=== PATIENT | female | born 1940 | race Caucasian/White ===

== ENCOUNTER 2019-01-16 20:34 | Inpatient (IN) | payer OTHER ==
[2019-01-16] MEDS ORDERED: ALBUTEROL SO4 2.5/IPRATROPIUM 0.5 INH SOL 3 ML VIAL.NEB. NEB ONE (20:40)
--- NOTE | 2019-01-16 20:48 | PDOC ---
Attending Attestation - HPI HPI: 01/16/19 23:12 The patient is a 78 year old female, with a significant PMH of who presents to the emergency department brought in by EMS for wheezing and cough. Patient was recently exposed to the flu. Patient was given 2 duo-nebs and 10mg of decadron IV via EMS en route to the ED. Patient states her symptoms have improved. The patient denies chest pain, headache and dizziness. Denies fever, chills, nausea, vomit, diarrhea and constipation. Denies dysuria, frequency, urgency and hematuria. Allergies: NKA Past surgical history: None reported. Social history: No reported alcohol, drug or cigarette use. - Physicial Exam PE: 01/16/19 23:13 Agree with resident's exam. <Madhavi Rincon - Last Filed: 01/16/19 23:12> - Resident Resident Name: Rod Gonzalez - ED Attending Attestation I have performed the following: I have examined & evaluated the patient, The case was reviewed & discussed with the resident, I agree w/resident's findings & plan - Critical Care Time Total Critical Care Time: 40 Critical Care Statement: The care of this patient involved high complexity decision making to prevent further life threatening deterioration of the patient 's condition and/or to evaluate & treat vital organ system(s) failure or risk of failure. - Medical Decision Making 01/16/19 23:45 78-year-old female with wheezing and shortness of breath Patient has improved with dexamethasone 10 mg IV as well as DuoNeb's 4 though still exhibits severe expiratory wheezing bilaterally Oxygen saturation decreased to 86% on room air after ambulation CTA will be performed in the emergency department prior to transfer to the floor to rule out pulmonary embolism due to persistent hypoxia Case discussed with hospitalist service by emergency department resident <Cora Ring - Last Filed: 01/16/19 23:47>
[2019-01-16] MEDS ORDERED: ALBUTEROL SO4 2.5/IPRATROPIUM 0.5 INH SOL 3 ML VIAL.NEB. NEB SCH (21:00)
--- NOTE | 2019-01-16 21:24 | PDOC ---
History of Present Illness - General Stated Complaint: DIFFICULTY BREATHING - History of Present Illness Initial Comments: The pt is a 78F w/ a history of HTN, hypothyroidism, HLD who presents for evaluation of shortness of breath and wheezing. The pt reports she has been in proximity with a friend who has/had the flu for several days. Tonight she states that she feels short of breath w/ associated cough. Denies fevers, chest pain, N/V/C/D, abdominal pain. Per EMS pt s/p duo-neb x2 and decadron 10mg IM once and stated that pt reported feeling somewhat improved afterwards. On arrival, pt reports continuing to feel short of breath w/ wheezing. Denies chest pain, dizziness, lightheadedness 01/16/19 21:17 Past History - Past Medical History Allergies/Adverse Reactions: Allergies Allergy/AdvReac Type Severity Reaction Status Date / Time No Known Allergies Allergy Verified 01/16/19 21:02 Home Medications: Ambulatory Orders Aspirin 81 mg PO DAILY 01/16/19 Atorvastatin Ca [Lipitor] 40 mg PO HS 01/16/19 Carvedilol [Coreg] 12.5 mg PO DAILY 01/16/19 Furosemide [Lasix] 40 mg PO DAILY 01/16/19 Levothyroxine [Synthroid -] 137 mcg PO DAILY 01/16/19 Lisinopril [Prinivil -] 40 mg PO DAILY 01/16/19 Meloxicam 15 mg PO DAILY 01/16/19 COPD: No HTN: Yes Hypercholesterolemia: Yes Thyroid Disease: Yes (hypothyroidism) - Immunization History Td Vaccination: Yes TDAP Vaccination: Yes Immunization Up to Date: Yes - Suicide/Smoking/Psychosocial Hx Smoking History: Never smoked Have you smoked in the past 12 months: No Information on smoking cessation initiated: No Hx Alcohol Use: No Drug/Substance Use Hx: No Review of Systems - Review of Systems Able to Perform ROS?: Yes Comments:: GENERAL/CONSTITUTIONAL: No fever or chills. No weakness HEAD, EYES, EARS, NOSE AND THROAT: No change in vision. No ear pain or discharge. No sore throat CARDIOVASCULAR: No chest pain RESPIRATORY: Denies hemoptysis GASTROINTESTINAL: No nausea, vomiting, diarrhea or constipation GENITOURINARY: No dysuria, frequency, or change in urination MUSCULOSKELETAL: +chronic b/l leg pain SKIN: +eczema NEUROLOGIC: No headache, vertigo, loss of consciousness, or change in strength/ sensation ENDOCRINE: No increased thirst. No abnormal weight change HEMATOLOGIC/LYMPHATIC: No anemia, easy bleeding, or history of blood clots 01/16/19 21:27 *Physical Exam - Vital Signs Last Vital Signs Temp Pulse Resp BP Pulse Ox 98.7 F 68 22 H 154/80 100 01/16/19 20:55 01/16/19 20:55 01/16/19 20:55 01/16/19 20:55 01/16/19 20:55 - Physical Exam Comments: GENERAL: Awake, alert, and oriented to person/place/time HEAD: No signs of trauma, normocephalic, atraumatic EYES: PERRLA, EOMI, sclera anicteric, conjunctiva clear ENT: Hearing grossly normal, nares patent, oropharynx clear without exudates. Moist mucosa LUNGS: diffuse b/l expiratory wheezing; not tachypnic HEART: Regular rate and rhythm, normal S1 and S2, no murmurs appreciated, ABDOMEN: Soft, protuberant, nontender, normoactive bowel sounds. No guarding, no rebound EXTREMITIES: BLE 1+ pitting edema to mid-avitia NEUROLOGICAL: Cranial nerves II through XII grossly intact. Normal speech, no focal sensorimotor deficits SKIN: Warm, Dry 01/16/19 21:28 ED Treatment Course - LABORATORY CBC & Chemistry Diagram: 01/16/19 21:15 01/16/19 21:15 - RADIOLOGY Radiology Studies Ordered: Category Date Time Status CHEST X-RAY PORTABLE* [RAD] Stat Radiology 01/16/19 20:46 Ordered - Medications Given in the ED: ED Medications Discontinued Medications Generic Name Dose Route Start Last Admin Trade Name Freq PRN Reason Stop Dose Admin Albuterol/Ipratropium 1 amp 01/16/19 21:00 01/16/19 21:13 Duoneb - NEB 01/16/19 21:01 1 amp Q15M JULI Administration Medical Decision Making - Medical Decision Making The pt is a 78F w/ a history of HTN, HLD, hypothyroidism who presents for evaluation of shortness of breath and wheezing s/p duo-neb x2 and decadron from EMS ED Course Labs sent CXR ECG Duo-neb x1 01/16/19 21:29 No leukocytosis No anemia ECG w/ NSR; HR 61; QTc 414 01/16/19 21:39 CTA to further evaluate for PE, PNA, effusion Tylenol 975mg PO once for pain Influenza swab sent 01/16/19 23:07 Influenza negative Pt to CTA Dispo: Admit 01/16/19 23:56 *DC/Admit/Observation/Transfer Diagnosis at time of Disposition: Shortness of breath Hypertension Qualifiers: Hypertension type: unspecified Qualified Code(s): I10 - Essential (primary) hypertension Hypothyroidism Qualifiers: Hypothyroidism type: unspecified Qualified Code(s): E03.9 - Hypothyroidism, unspecified - Discharge Dispostion Condition at time of disposition: Fair Decision to Admit order: Yes - Referrals - Patient Instructions - Post Discharge Activity
[2019-01-16 21:25] LABS: HEMATOCRIT 38.8 % (32.4-45.2); HEMOGLOBIN 12.8 GM/dL (10.7-15.3); MCH 31.6 pg (25.7-33.7); MEAN CELL VOLUME 95.7 fl (80-96); MEAN PLT VOLUME 8.7 fl (7.5-11.1); PLATELET COUNT 176 K/MM3 (134-434); RBC 4.06 M/mm3 (3.60-5.2); RDW 14.9 % (11.6-15.6); WHITE BLOOD COUNT 4.6 K/mm3 (4.0-10.0)
[2019-01-16 21:57] LABS: N-TERMINAL BNP 76.2 pg/ml (5-450)
[2019-01-16 21:58] LABS: ALBUMIN 3.2 g/dl (3.4-5.0); ALK PHOS 86 U/L (45-117); ANION GAP 4 MMOL/L (8-16); BILIRUBIN,TOTAL 0.2 mg/dL (0.2-1); BLOOD UREA NITROGEN 15 mg/dL (7-18); CALCIUM 7.9 mg/dL (8.5-10.1); CHLORIDE 102 mmol/L (98-107); CO2 31 mmol/L (21-32); CREATININE 0.6 mg/dL (0.55-1.3); GLUCOSE,RANDOM 116 mg/dL (74-106); POTASSIUM 4.5 mmol/L (3.5-5.1); SGOT/AST 38 U/L (15-37); SGPT/ALT 28 U/L (13-61); SODIUM 138 mmol/L (136-145); TOT PROT 6.5 g/dl (6.4-8.2)
--- NOTE | 2019-01-16 22:34 | PN ---
Teaching Attending Note Name of Resident: Benja Sanchez ATTENDING PHYSICIAN STATEMENT I saw and evaluated the patient. I reviewed the resident's note and discussed the case with the resident. I agree with the resident's findings and plan as documented. SUBJECTIVE: Patient is a 78 year old woman with PMH of HTN, hypothyroidism and HLD who presents for evaluation of shortness of breath and wheezing. The patient reports she has been in proximity with a friend who has had the flu for several days. Tonight she states that she feels short of breath with associated nonproductive cough. Denies fevers, chest pain, nausea, vomiting, abdominal pain or change in bowel habits. Per EMS she was given Duo-neb x2 and decadron 10mg IM once and stated that she reported feeling somewhat improved afterwards. On arrival, patient reports continuing to feel short of breath with wheezing. She has CARDENAS, sleeps on 3 pillows and has constipation. Denies chest pain, dizziness or lightheadedness. OBJECTIVE: Alert Vital Signs Period Temp Pulse Resp BP Sys/Mann Pulse Ox Last 24 Hr 98.7 F 66-68 14-22 145-154/80-80 96-100 HEENT: No Jaundice, eye redness or discharge, PERRLA, EOMI. Normocephalic, atraumatic. External ears are normal and hearing is grossly intact. No nasal discharge. Neck: Supple, nontender. No palpable adenopathy or thyromegaly. No JVD Chest: Good effort. Diffuse expiratory wheezing. No rales. Clear to percussion. Heart: Regular. No S3, rub or murmur Abdomen: Not distended, soft, nontender and no HSM. No rebound or guarding. Normal bowel sounds. Ext: Peripheral pulses intact. Obese legs. No pitting leg edema. Skin: Warm and dry. No petechiae, rash or ecchymosis. Neuro: Alert. Oriented x3. CN 2-12 grossly intact. Sensation grossly intact in all four extremities and DTR are symmetric. Psych: Appropriate mood and affect. Good insight. Home Medications Medication Instructions Recorded Aspirin 81 mg PO DAILY 01/16/19 Atorvastatin Ca [Lipitor] 40 mg PO HS 01/16/19 Carvedilol [Coreg] 12.5 mg PO DAILY 01/16/19 Furosemide [Lasix] 40 mg PO DAILY 01/16/19 Levothyroxine [Synthroid -] 137 mcg PO DAILY 01/16/19 Lisinopril [Prinivil -] 40 mg PO DAILY 01/16/19 Meloxicam 15 mg PO DAILY 01/16/19 Abnormal Lab Results 01/16/19 21:15 Anion Gap 4 L Random Glucose 116 H Calcium 7.9 L AST 38 H Albumin 3.2 L ASSESSMENT AND PLAN: 1. Acute bronchospasm - Finding consistent with acute asthma exacerbation. Will treated with duoneb q 4 hours and solumedrol 40 mg IV q 8 hours as well as oxygen. CXR shows increased interstitial markings and pulmonary congestion. No pulmonary embolism on CTA. EKG shows NSR with no acute ST-T wave changes. Will get ECHO and check HbA1c. Will give a trial of IV lasix pending ECHO in view of congestion on CXR. May have a component of sleep apnea and/or obesity- hypoventilation syndrome. Will benefit fro outpatient PFTs. Counseled to stop meloxicam and use conservative measures to alleviate arthritis pain. 2. Hypoalbuminemia - Possibly due to combined effects of malnutrition and inflammation associated with comorbid chronic conditions. Will ensure adequate dietary protein intake and also consult wealth management manager. 3. Morbid obesity Counseled on the risks associated with obesity. Will provide patient all the necessary assistance, counseling and positive reinforcement to facilitate weight loss. Consult wealth management manager. 4. Hypertension - Hypertension imroved while in the ER. Will restart outpatient antihypertensive drugs and revise regimen to ensure smooth [id number] good BP control. Nonpharmacologic measures to control hypertension like weight loss, salt restriction and exercise discussed. 5. DVT prophylaxis - Lovenox 40 mg SQ q 12 hours. 6. Advance directives - Full code
[2019-01-16] MEDS ORDERED: ACETAMINOPHEN 325 MG TABLET (FP) PO ONE (23:06)
[2019-01-16] MEDS ORDERED: ACETAMINOPHEN 325 MG TABLET (FP) ONE (23:11)
[2019-01-16 23:40] LABS: PLATELET ESTIMATE ADEQUATE
--- NOTE | 2019-01-17 01:29 | HP ---
CHIEF COMPLAINT: Cough, shortness of breath, "I have a virus" PCP: Dr. Nolen HISTORY OF PRESENT ILLNESS: Pt. is a 78 y.o. lithuanian-speaking F presenting with cough and shortness of breath since Monday. Pt. states that she has been having a dry cough, malaise, and decreased appetite associated with subjective fever. She endorses that the cough has been keeping her up all night throughout this time. Pt. states that her neighbor whom she visits everyday was admitted yesterday for the flu. Pt. states that 2 years ago she felt very similar to the way she feels now but did not go to the hospital and her symptoms resolved in 2 weeks. Pt. states that she was referred by her PCP to see a director of public safety and has an appointment on 01/29 for an echo and cardiac workup for suspected CHF. Pt. states that her legs are swollen and has been worsening progressively for months. Pt. states that she "can walk fine on a flat surface but becomes short of breath very quickly on hills and stairs." Pt. endorses 3 pillow orthopnea. Pt. states that her last BM was on Monday, but that she can sometimes go for "weeks" without having a BM. Pt. endorses a burning sensation in the right avitia. Pt. denies acute vision changes, acute bowel changes, acute urinary changes, blood in the urine or stool, chest pain, nausea or vomiting at this time. At this time Pt. endorses some improvement with respirations. ER course was notable for: (1)EKG, CTA, CXR (2)Duonebs x1 (3)Labs, Desaturation to 86% on ambulation EMS: Duonebs x 2, Decadron 10mg Recent Travel: No PAST MEDICAL HISTORY: HTN, HLD, Hypothyroidism, Arthritis, Childhood Asthma, PAST SURGICAL HISTORY: B/l Hip Replacement (2014, 2017) and Cataract Surgery on L. Eye Social History: Smoking: Denies, never Alcohol: Denies, occasional in past Drugs: Denies, never Family History: Mother-DM, heart disease; Father-HTN, heart disease Allergies Seasonal Allergies HOME MEDICATIONS: Home Medications Medication Instructions Recorded Aspirin 81 mg PO DAILY 01/16/19 Atorvastatin Ca [Lipitor] 40 mg PO HS 01/16/19 Carvedilol [Coreg] 12.5 mg PO DAILY 01/16/19 Furosemide [Lasix] 40 mg PO DAILY 01/16/19 Levothyroxine [Synthroid -] 137 mcg PO DAILY 01/16/19 Lisinopril [Prinivil -] 40 mg PO DAILY 01/16/19 Meloxicam 15 mg PO DAILY 01/16/19 REVIEW OF SYSTEMS As Per [facility] PHYSICAL EXAMINATION Vital Signs - 24 hr 01/16/19 01/16/19 01/17/19 20:55 21:46 01:04 Temperature 98.7 F 98.2 F Pulse Rate 68 Pulse Rate [ 66 67 Apical] Respiratory 22 H 14 18 Rate Blood Pressure 154/80 Blood Pressure 145/80 153/63 [Left Arm] O2 Sat by Pulse 100 96 96 Oximetry (%) 01/17/19 01:09 Temperature Pulse Rate Pulse Rate [ Apical] Respiratory Rate Blood Pressure Blood Pressure [Left Arm] O2 Sat by Pulse 96 Oximetry (%) GENERAL: Awake, alert, and fully oriented, in respiratory distress, fully upright HEAD: Normal with no signs of trauma. EYES: Pupils equal, round and reactive to light, extraocular movements intact, sclera anicteric, conjunctiva clear. EARS, NOSE, THROAT: Ears normal, nares patent, oropharynx clear without exudates. Moist mucous membranes. NECK: Normal range of motion, supple without lymphadenopathy, JVD, carotid bruit or masses- limited s/t body habitus LUNGS: Diffuse wheezing with crackles. No accessory muscle use. HEART: Regular rate and rhythm, normal S1 and S2 without murmur, rub or gallop. ABDOMEN: Soft, nontender, not distended, normoactive bowel sounds, no guarding, no rebound, no masses. No hepatomegaly or splenomegaly. MUSCULOSKELETAL: No CVA tenderness. UPPER EXTREMITIES: 1+ radial pulses, warm, well-perfused. No cyanosis. No clubbing. LOWER EXTREMITIES: 1+ dorsal pedal pulses, warm, well-perfused. Avitia tenderness. Non-pitting edema vs. fat tissue NEUROLOGICAL: Normal speech. PSYCHIATRIC: Cooperative. Good eye contact. Appropriate mood and affect. SKIN: Warm, dry, normal turgor, normal capillary refill. Laboratory Results - last 24 hr 01/16/19 01/16/19 01/16/19 21:15 21:15 21:15 WBC 4.6 RBC 4.06 Hgb 12.8 Hct 38.8 MCV 95.7 MCH 31.6 MCHC 33.0 RDW 14.9 Plt Count 176 MPV 8.7 Neutrophils % (Manual) 36.0 L Band Neutrophils % 1.0 Lymphocytes % (Manual) 40.0 Monocytes % (Manual) 17 H Eosinophils % (Manual) 2.0 Platelet Estimate Adequate Sodium 138 Potassium 4.5 Chloride 102 Carbon Dioxide 31 Anion Gap 4 L BUN 15 Creatinine 0.6 Creat Clearance w eGFR 97.20 Random Glucose 116 H Calcium 7.9 L Total Bilirubin 0.2 AST 38 H ALT 28 Alkaline Phosphatase 86 Troponin I < 0.02 B-Natriuretic Peptide 76.2 Total Protein 6.5 Albumin 3.2 L Influenza A (Rapid) Influenza B (Rapid) 01/16/19 23:00 WBC RBC Hgb Hct MCV MCH MCHC RDW Plt Count MPV Neutrophils % (Manual) Band Neutrophils % Lymphocytes % (Manual) Monocytes % (Manual) Eosinophils % (Manual) Platelet Estimate Sodium Potassium Chloride Carbon Dioxide Anion Gap BUN Creatinine Creat Clearance w eGFR Random Glucose Calcium Total Bilirubin AST ALT Alkaline Phosphatase Troponin I B-Natriuretic Peptide Total Protein Albumin Influenza A (Rapid) Negative Influenza B (Rapid) Negative ASSESSMENT/PLAN: Pt. is a 78 y.o. lithuanian-speaking F w/ PMHx. of HTN, HLD, Hypothyroidism and Childhood allergic asthma presents with cough and shortness of breath since Monday. Physical exam significant for wheezing, morbid obesity, RUQ tenderness and lower extremity swelling. Labs/Imaging significant for congestive changes on Xray, Negative PE on CTA, afebrile and no WBC elevation. #Acute Hypoxic Respiratory Failure 2/2 CHF exacerbation Shortness of breath on exertion, increased lower extremity swelling, 3 pillow orthopnea, malaise, cardiomegaly and Pt.'s medication history suggest that the Pt. has some component of heart failure Will give 60mg IV Lasix Strict Is and Os as well as Daily Weights to assess response to Lasix f/u Echo f/u CXR in AM for resolution of congestion Trop. Negative x 1 BNP: 76.2 C/w Coreg 12.5mg BID and Lisinopril 40mg Discontinue Meloxicam as prolonged use is known to cause cardiovascular events especially in the elderly- can substitute with topical patches and creams ( Lidoderm 5% and topical analgesics) EKG: NSR, QTc-414, TWI in V1, P-wave inversion in V1-V3 #Allergic Asthma exacerbation Pt. likely has component of allergic asthma as Pt. has responded to Duonebs though course seems to be refractory, and Pt. is not currently on Ventolin inhaler or daily inhaled corticosteroids at home. will c/w Duonebs Q4H supplemntal O2 to keep sPO2> 92% low threshold for ABG Will start IV Solumedrol 40mg Q8H- low threshold for hold pending echo results as this medication can worsen and antagonizes treatment of heart failure, however benefits out-weighs risk at this time Would recommend Pneumonia Vaccine and Flu vaccine prior to discharge Influenza Neg. CTA Negative for PE, shows chronic airway disease(non-specific ground glass opacities), pneumonitis or congestion #Constipation unknown cause at this time however per Pt. this appears to be chronic. start Miralax, Senna and Docusate as severe constipation can affect respiration , would consider CT abdomen vs. 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 is being undertreated for hypothyroidism. 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 Lovenox 40mg Q12H Visit type - Emergency Visit Emergency Visit: Yes ED Registration Date: 01/16/19 Care time: The patient presented to the Emergency Department on the above date and was hospitalized for further evaluation of their emergent condition. - New Patient This patient is new to me today: Yes Date on this admission: 01/16/19 - Critical Care Critical Care patient: No
[2019-01-17] MEDS ORDERED: FUROSEMIDE 40 MG/4 ML INJECTABLE VIAL IVPUSH ONE (01:42)
[2019-01-17 03:00] VITALS: BMI 47.2
[2019-01-17] MEDS ORDERED: ALBUTEROL SO4 2.5/IPRATROPIUM 0.5 INH SOL 3 ML VIAL.NEB. NEB SCH ×2 (03:00→03:45)
[2019-01-17] MEDS: methylPREDNISolone NA SUCC 40 MG/1 ML VIAL IVPUSH SCH ×2 (03:28→11:07)
[2019-01-17] MEDS: ALBUTEROL SO4 2.5/IPRATROPIUM 0.5 INH SOL 3 ML VIAL.NEB. NEB SCH ×5 (05:00→11:30)
[2019-01-17] MEDS: LEVOTHYROXINE 112 MCG, LEVOTHYROXINE 25 MCG PO SCH (06:30)
[2019-01-17 07:19] LABS: HEMOGLOBIN 14.7 GM/dL (10.7-15.3); MCHC 33.4 g/dl (32.0-36.0); PLATELET COUNT 185 K/MM3 (134-434); RBC 4.58 M/mm3 (3.60-5.2); RDW 14.6 % (11.6-15.6); WHITE BLOOD COUNT 3.4 K/mm3 (4.0-10.0)
[2019-01-17 07:56] LABS: ALBUMIN 3.6 g/dl (3.4-5.0); ALK PHOS 95 U/L (45-117); ANION GAP 7 MMOL/L (8-16); BILIRUBIN,TOTAL 0.4 mg/dL (0.2-1); BLOOD UREA NITROGEN 12 mg/dL (7-18); CALCIUM 8.3 mg/dL (8.5-10.1); CHLORIDE 97 mmol/L (98-107); CO2 34 mmol/L (21-32); CREATININE 0.7 mg/dL (0.55-1.3); GLUCOSE,RANDOM 173 mg/dL (74-106); MAGNESIUM 2.1 mg/dL (1.8-2.4); PHOSPHOROUS 3.7 mg/dL (2.5-4.9); POTASSIUM 4.5 mmol/L (3.5-5.1); SGOT/AST 31 U/L (15-37); SGPT/ALT 31 U/L (13-61); SODIUM 138 mmol/L (136-145); TOT PROT 7.4 g/dl (6.4-8.2)
[2019-01-17] MEDS ORDERED: LISINOPRIL 20 MG TABLET (FP) PO SCH (10:00)
[2019-01-17] MEDS ORDERED: FUROSEMIDE 40 MG/4 ML INJECTABLE VIAL IVPUSH SCH (10:00)
[2019-01-17] MEDS ORDERED: LEVOTHYROXINE NA 125 MCG TABLET (FP) PO SCH (10:00)
[2019-01-17] MEDS ORDERED: ENOXAPARIN NA (PORCINE) 40 MG/0.4 ML DISP.SYRIN SQ SCH (10:00)
[2019-01-17] MEDS ORDERED: ENOXAPARIN NA (PORCINE) 60 MG/0.6 ML DISP.SYRIN SQ SCH (10:00)
[2019-01-17] MEDS: DOCUSATE SODIUM 100 MG CAPSULE (FP) PO SCH ×2 (11:07→21:24)
[2019-01-17] MEDS: FUROSEMIDE 40 MG TABLET (FP) PO SCH (11:08)
[2019-01-17] MEDS: ASPIRIN 81 MG CHEWABLE TABLETS PO SCH (11:08)
[2019-01-17] MEDS: CARVEDILOL 12.5 MG TABLET (FP) PO SCH ×2 (11:08→21:24)
--- NOTE | 2019-01-17 11:11 | PN ---
Teaching Attending Note Name of Resident: Edmar Ontiveros ATTENDING PHYSICIAN STATEMENT I saw and evaluated the patient. I reviewed the resident's note and discussed the case with the resident. I agree with the resident's findings and plan as documented. SUBJECTIVE:breathing improved. able to ambulate to bathroom with minimal difficulty. has dry cough. denies CP, fever, chills, N/V/C/D no recent changes to medications OBJECTIVE: Last Vital Signs Temp Pulse Resp BP Pulse Ox 97.9 F 76 18 146/69 97 01/17/19 09:34 01/17/19 09:34 01/17/19 09:34 01/17/19 09:34 01/17/19 03:08 General NAD CV S1 S2 RRR no murmur/rub/gallop Lungs CTA B/L no wheezing/rales/rhonchi Abdomen soft NT/ND obese extremities non pitting edema ASSESSMENT AND PLAN: 78yo F wtih pMH HTN, dyslipidemia, hypothyroid presented to the ER with progressively worsening SOB and dry cough 1. Acute hypoxic respiratory failure- due to asthma exacerbation. was 86% on RA In the ER and currently 97% on 3L NC. no peak flow available. on medrol 40mg Q8H , will add azithromycin to decrease inflammation. nebs and inhalers. low suspicion for volume overload based on normal BNP, clear lungs on exam and on CT chest. will hold lasix IV at this time. echo pending. will hold acei as this can also potentiate cough. although been on stable dose for some time. CTA negative. Flu negative 2. HTN- controlled. monitor as ACEI being held. will need to titrate to optimze control 3. Hypothyroid- TSH WNL. cont LT4 4. DVT ppx- lovenox 5. anticipate discharge in next 24-48H
[2019-01-17] MEDS: POLYETHYLENE GLYCOL 3350 119 GM BTL PO SCH (11:14)
[2019-01-17] MEDS: AZITHROMYCIN 250 MG TABLET PO SCH (11:21)
--- NOTE | 2019-01-17 11:47 | EKG ---
Test Reason : Blood Pressure : / mmHG Vent. Rate : 061 BPM Atrial Rate : 061 BPM P-R Int : 152 ms QRS Dur : 084 ms QT Int : 412 ms P-R-T Axes : 051 000 031 degrees QTc Int : 414 ms NORMAL SINUS RHYTHM NORMAL ECG NO PREVIOUS ECGS AVAILABLE Confirmed by ROXANNE MAYS MD ([id number]) on 01/17/2019 11:46:54 AM Referred By: Confirmed By:ROXANNE MAYS MD
--- NOTE | 2019-01-17 12:41 | PN ---
Physical Exam: SUBJECTIVE: Patient seen and examined at bedside. no acute events since admission. breathing improved. able to ambulate to bathroom with minimal difficulty. has dry cough. denies CP, fever, chills, N/V/C/D no recent changes to medications OBJECTIVE: Vital Signs Period Temp Pulse Resp BP Sys/Mann Pulse Ox Last 24 Hr 97.6 F-98.7 F 63-76 14-22 126-156/63-80 96-100 GENERAL: AOX 3 NAD, fully upright HEAD: NCAT EYES: Pupils equal, round and reactive to light, extraocular movements intact, sclera anicteric, conjunctiva clear. EARS, NOSE, THROAT: nares patent, oropharynx clear without exudates. MMM. NECK: Normal range of motion, supple without lymphadenopathy, JVD, LUNGS: Diffuse wheezing with crackles. No accessory muscle use. HEART: RRR, normal S1 and S2 without murmur, rub or gallop. ABDOMEN: Soft, NTND, normoactive bowel sounds, no guarding, no rebound, no masses. MUSCULOSKELETAL: No CVA tenderness. UPPER EXTREMITIES: 1+ radial pulses, warm, well-perfused. No cyanosis. No clubbing. LOWER EXTREMITIES: 1+ dorsal pedal pulses, warm, well-perfused. R Mandel tenderness. Non-pitting edema vs. fat tissue NEUROLOGICAL: Normal speech. PSYCHIATRIC: Cooperative. Good eye contact. Appropriate mood and affect. SKIN: Warm, dry, normal turgor, normal capillary refill. Laboratory Results - last 24 hr 01/16/19 01/16/19 01/16/19 21:15 21:15 21:15 WBC 4.6 RBC 4.06 Hgb 12.8 Hct 38.8 MCV 95.7 MCH 31.6 MCHC 33.0 RDW 14.9 Plt Count 176 MPV 8.7 Neutrophils % (Manual) 36.0 L Band Neutrophils % 1.0 Lymphocytes % (Manual) 40.0 Monocytes % (Manual) 17 H Eosinophils % (Manual) 2.0 Platelet Estimate Adequate Sodium 138 Potassium 4.5 Chloride 102 Carbon Dioxide 31 Anion Gap 4 L BUN 15 Creatinine 0.6 Creat Clearance w eGFR 97.20 Random Glucose 116 H Hemoglobin A1c % Calcium 7.9 L Phosphorus Magnesium Total Bilirubin 0.2 AST 38 H ALT 28 Alkaline Phosphatase 86 Troponin I < 0.02 B-Natriuretic Peptide 76.2 Total Protein 6.5 Albumin 3.2 L TSH Influenza A (Rapid) Influenza B (Rapid) 01/16/19 01/17/19 01/17/19 23:00 06:20 06:20 WBC 3.4 L RBC 4.58 Hgb 14.7 Hct 44.0 MCV 96.0 MCH 32.0 MCHC 33.4 RDW 14.6 Plt Count 185 MPV 9.0 Neutrophils % (Manual) Band Neutrophils % Lymphocytes % (Manual) Monocytes % (Manual) Eosinophils % (Manual) Platelet Estimate Sodium 138 Potassium 4.5 Chloride 97 L Carbon Dioxide 34 H Anion Gap 7 L BUN 12 Creatinine 0.7 Creat Clearance w eGFR 81.36 Random Glucose 173 H Hemoglobin A1c % Calcium 8.3 L Phosphorus 3.7 Magnesium 2.1 Total Bilirubin 0.4 AST 31 ALT 31 Alkaline Phosphatase 95 Troponin I B-Natriuretic Peptide Total Protein 7.4 Albumin 3.6 TSH 0.97 Influenza A (Rapid) Negative Influenza B (Rapid) Negative 01/17/19 06:20 WBC RBC Hgb Hct MCV MCH MCHC RDW Plt Count MPV Neutrophils % (Manual) Band Neutrophils % Lymphocytes % (Manual) Monocytes % (Manual) Eosinophils % (Manual) Platelet Estimate Sodium Potassium Chloride Carbon Dioxide Anion Gap BUN Creatinine Creat Clearance w eGFR Random Glucose Hemoglobin A1c % 5.5 Calcium Phosphorus Magnesium Total Bilirubin AST ALT Alkaline Phosphatase Troponin I B-Natriuretic Peptide Total Protein Albumin TSH Influenza A (Rapid) Influenza B (Rapid) Active Medications Generic Name Dose Route Start Last Admin Trade Name Freq PRN Reason Stop Dose Admin Albuterol/Ipratropium 1 amp 01/17/19 04:00 01/17/19 05:00 Duoneb - NEB 01/17/19 16:01 1 amp [id number] JULI Administration Aspirin 81 mg 01/17/19 10:00 01/17/19 11:08 Asa - PO 81 mg DAILY JULI Administration Atorvastatin Calcium 40 mg 01/17/19 22:00 Lipitor - PO HS JULI Azithromycin 500 mg 01/17/19 11:25 01/17/19 11:21 Zithromax - PO 01/20/19 11:24 500 mg DAILY JULI Administration Carvedilol 12.5 mg 01/17/19 10:00 01/17/19 11:08 Coreg - PO 12.5 mg BID JULI Administration Docusate Sodium 100 mg 01/17/19 10:00 01/17/19 11:07 Colace - PO 100 mg BID JULI Administration Enoxaparin Sodium 60 mg 01/17/19 10:00 Lovenox - SQ DAILY JULI Furosemide 40 mg 01/17/19 10:00 01/17/19 11:08 Lasix - PO 40 mg DAILY JULI Administration Levothyroxine Sodium 112 mcg/ 137 mcg 01/17/19 07:00 01/17/19 06:30 Levothyroxine Sodium 25 mcg PO 137 mcg DAILY@0700 JULI Administration Lisinopril 40 mg 01/17/19 10:00 01/17/19 11:17 Prinivil PO Not Given DAILY JULI Methylprednisolone Sodium Succinate 40 mg 01/17/19 02:15 01/17/19 11:07 Solu-Medrol - IVPUSH 40 mg Q8H-IV JULI Administration Polyethylene Glycol 17 gm 01/17/19 10:00 01/17/19 11:14 Miralax (For Daily Use) - PO 17 gm DAILY JULI Administration Senna 2 tab 01/17/19 22:00 Senna - PO [facility] [id number] CT/CHEST CTA - 01/17/19 HISTORY PROVIDED: Rule out PE. TECHNIQUE: Sequential axial images were obtained from the thoracic inlet through the domes of the diaphragm following the administration of intravenous contrast material. CTA pulmonary embolism protocol was utilized, including coronal and oblique coronal MIP images. The study is somewhat limited due to the patient's poor cooperation. There is adequate opacification of the central pulmonary vasculature with no filling defects suspicious for pulmonary embolism. The lung [place] are free of pulmonary masses, areas of acute consolidation or pleural effusions. There are areas of groundglass opacification throughout both lungs. These changes may be chronic in nature. The possibility of a mild degree of acute congestion cannot be excluded. No mediastinal masses, fluid collections or lymphadenopathy are identified. The heart is enlarged. Limited evaluation of the upper abdomen demonstrates no acute pathology. IMPRESSION: Limited study with with no evidence of pulmonary embolism or acute pathology within the chest. Please see above discussion. ASSESSMENT/PLAN: 78 y.o. turkish-speaking F w/ PMHx. of HTN, HLD, Hypothyroidism and Childhood allergic asthma p/w progressively worsening SOB and dry cough x4d. Physical exam significant for wheezing, morbid obesity,and lower extremity swelling?. Labs/Imaging significant for congestive changes on Xray, Negative PE on CTA, afebrile and no WBC elevation. #Acute Hypoxic Respiratory Failure 2/2 asthma exacerbation - was 86% on RA in the ER and currently 97% on 3L NC. no peak flow available. low suspicion for volume overload based on normal BNP and no crackles on lung exam and on CT chest -CTA Negative for PE, shows chronic? airway disease(non-specific ground glass opacities) -Peak flow -c/w medrol 40mg Q8H -will add azithromycin 500mg x3d to decrease inflammation -bronchodilators -echo pending -hold lasix IV at this time -will hold acei as this can also potentiate cough. although been on stable dose for some time. -Flu negative #CHF? - per pt, CARDENAS, increased lower extremity swelling, 3 pillow orthopnea, malaise, and Pt.'s medication history suggest that Pt may have some component of heart failure. not in exacerbation; normal BNP and no crackles on lung exam EKG: NSR, QTc-414, TWI in V1, P-wave inversion in V1-V3 BNP: 76.2 Trop. Negative x 1 s/p 60mg IV Lasix in ED hold IV lasix as does not appear to be in exacerbaion C/w home dose Coreg 12.5mg BID and Lisinopril 40mg Strict Is and Os, Daily Weights f/u Echo Discontinue Meloxicam as prolonged use is known to cause cardiovascular events especially in the elderly- can substitute with topical patches and creams ( Lidoderm 5% and topical analgesics) #Constipation - chronic. per pt has BMs once a week at baseline c/w Miralax, Senna and Docusate #Hypothyroidism TSH WNL c/w Levothyroxine #ELVA/OHS BMI of 46 3 pillow orthopnea and malaise may be partially attributable to ELVA/OHS would recommend sleep study on discharge and follow up with Pulmonology outpatient #Morbid Obesity - BMI 46 [employer] Pt. on life style modifications with realistic expectations; Salt, processed sugar and saturated fat restriction Daily exercise- 20-30min of walking #HTN - controlled. will hold ACEI in consideration of cough. c/w Coreg #HLD c/w Atorvastatin #FEN no IVF, encourage PO intake monitor electrolytes and replete as needed Na restricted diet #DVT Ppx. Lovenox 60mg qd for BMI>40 use increase of standard dose by ~30% Dispo m/s anticipate discharge in next 24-48H Visit type - Emergency Visit Emergency Visit: Yes ED Registration Date: 01/16/19 Care time: The patient presented to the Emergency Department on the above date and was hospitalized for further evaluation of their emergent condition. - New Patient This patient is new to me today: Yes Date on this admission: 01/17/19 - Critical Care Critical Care patient: No
--- NOTE | 2019-01-17 13:32 | ECHO ---
Name: RAFFI SINCLAIR C Exam:Adult Echocardiogram Study Date: 01/17/2019 09:39 AM Age: 78 yrs Reason For Study: LEG SWELLING Height: 63 in Weight: 260 lb BSA: 2.2 m2 MMode/2D Measurements & Calculations Ao root diam: 2.7 cm LVOT diam: 2.0 cm LA dimension: 2.8 cm Doppler Measurements & Calculations MV E max sofie: 135.0 cm/sec Ao V2 max: 173.7 cm/sec MV A max sofie: 157.5 cm/sec Ao max P.1 mmHg MV E/A: 0.86 MV dec time: 0.14 sec CARINA(V,D): 1.9 cm2 LV V1 max P.6 mmHg PA V2 max: 167.0 cm/sec LV V1 max: 107.7 cm/sec PA max P.1 mmHg Procedure A complete two-dimensional transthoracic echocardiogram was performed (2D, M-mode, Doppler and color flow Doppler). The study was technically difficult with many images being suboptimal in quality. Left Ventricle The left ventricular size, thickness and function are normal. The left ventricular ejection fraction is normal. Ejection Fraction = 60-65%. No regional wall motion abnormalities noted. Right Ventricle The right ventricle is normal in size and function. Atria The left atrial size is normal. Right atrium not well visualized. Mitral Valve There is no mitral regurgitation noted. Tricuspid Valve There is trace tricuspid regurgitation. There was insufficient TR detected to calculate RV systolic p ressure. Aortic Valve No hemodynamically significant valvular aortic stenosis. No aortic regurgitation is present. Pulmonic Valve There is no pulmonic valvular regurgitation. Great Vessels The aortic root is normal size. Pericardium/Pleura There is no pericardial effusion. Interpretation Summary The study was technically difficult with many images being suboptimal in quality. The left ventricular size, thickness and function are normal The right ventricle is normal in size and function. There is trace tricuspid regurgitation. MD Richard Desir 01/17/2019 01:32 PM
[2019-01-17] MEDS: ENOXAPARIN NA (PORCINE) 60 MG/0.6 ML DISP.SYRIN SQ SCH (14:34)
[2019-01-17] MEDS ORDERED: guaiFENesin/D-METHORPHAN HB 10 ML UNIT-DOSE CUPS PO ONE (18:37)
[2019-01-17] MEDS: ATORVASTATIN CA 40 MG TABLET (FP) PO SCH (21:24)
[2019-01-17] MEDS: SENNOSIDES 8.6MG TABLET (FP) PO SCH (21:24)
[2019-01-18] MEDS: LEVOTHYROXINE 112 MCG, LEVOTHYROXINE 25 MCG PO SCH (06:12)
[2019-01-18] MEDS ORDERED: ALBUTEROL SO4 0.083% IH SOL 2.5 MG/3 ML VIAL.NEB. NEB PRN (09:06)
[2019-01-18] MEDS: AZITHROMYCIN 250 MG TABLET PO SCH (10:00)
[2019-01-18] MEDS: CARVEDILOL 12.5 MG TABLET (FP) PO SCH ×2 (10:00→22:01)
[2019-01-18] MEDS: methylPREDNISolone NA SUCC 40 MG/1 ML VIAL IVPUSH SCH ×2 (10:01→22:01)
[2019-01-18] MEDS: ASPIRIN 81 MG CHEWABLE TABLETS PO SCH (10:01)
[2019-01-18] MEDS: FUROSEMIDE 40 MG TABLET (FP) PO SCH (10:01)
[2019-01-18] MEDS: DOCUSATE SODIUM 100 MG CAPSULE (FP) PO SCH ×2 (10:01→22:01)
[2019-01-18] MEDS: ENOXAPARIN NA (PORCINE) 60 MG/0.6 ML DISP.SYRIN SQ SCH (10:02)
[2019-01-18] MEDS: POLYETHYLENE GLYCOL 3350 119 GM BTL PO SCH (10:02)
[2019-01-18] MEDS: ALBUTEROL SO4 2.5/IPRATROPIUM 0.5 INH SOL 3 ML VIAL.NEB. NEB SCH (10:03)
--- NOTE | 2019-01-18 10:34 | PN ---
Physical Exam: SUBJECTIVE: Patient seen and examined at bedside. no acute events overnight. breathing improved. able to ambulate to bathroom with minimal difficulty. has dry cough. denies CP, fever, chills, N/V/C/D no recent changes to medications OBJECTIVE: Vital Signs Period Temp Pulse Resp BP Sys/Mann Pulse Ox Last 24 Hr 97.7 F-98.3 F 60-84 18-20 134-166/54-75 94 GENERAL: AOX 3 NAD, fully upright, morbidly obese BMI>46 HEAD: NCAT EYES: Pupils equal, round and reactive to light, extraocular movements intact, sclera anicteric, conjunctiva clear. EARS, NOSE, THROAT: nares patent, oropharynx clear without exudates. MMM. NECK: Normal range of motion, supple without lymphadenopathy, JVD, LUNGS: Diffuse wheezing with crackles. No accessory muscle use. HEART: RRR, normal S1 and S2 without murmur, rub or gallop. ABDOMEN: Soft, NTND, normoactive bowel sounds, no guarding, no rebound, no masses. MUSCULOSKELETAL: No CVA tenderness. UPPER EXTREMITIES: 1+ radial pulses, warm, well-perfused. No cyanosis. No clubbing. LOWER EXTREMITIES: 1+ dorsal pedal pulses, warm, well-perfused. R Mandel tenderness. Non-pitting edema vs. fat tissue NEUROLOGICAL: Normal speech. PSYCHIATRIC: Cooperative. Good eye contact. Appropriate mood and affect. SKIN: Warm, dry, normal turgor, normal capillary refill. Active Medications Generic Name Dose Route Start Last Admin Trade Name Freq PRN Reason Stop Dose Admin Albuterol Sulfate 1 amp 01/18/19 09:06 Ventolin 0.083% Nebulizer Soln - NEB Q4H PRN SHORT OF BREATH/WHEEZING Aspirin 81 mg 01/17/19 10:00 01/18/19 10:01 Asa - PO 81 mg DAILY JULI Administration Atorvastatin Calcium 40 mg 01/17/19 22:00 01/17/19 21:24 Lipitor - PO 40 mg HS JULI Administration Azithromycin 500 mg 01/17/19 11:25 01/18/19 10:00 Zithromax - PO 01/20/19 11:24 500 mg DAILY JULI Administration Carvedilol 12.5 mg 01/17/19 10:00 01/18/19 10:00 Coreg - PO 12.5 mg BID JULI Administration Docusate Sodium 100 mg 01/17/19 10:00 01/18/19 10:01 Colace - PO 100 mg BID JULI Administration Enoxaparin Sodium 60 mg 01/17/19 12:45 01/18/19 10:02 Lovenox - SQ 60 mg DAILY JULI Administration Furosemide 40 mg 01/17/19 10:00 01/18/19 10:01 Lasix - PO 40 mg DAILY JULI Administration Levothyroxine Sodium 112 mcg/ 137 mcg 01/17/19 07:00 01/18/19 06:12 Levothyroxine Sodium 25 mcg PO 137 mcg DAILY@0700 JULI Administration Lisinopril 40 mg 01/17/19 10:00 01/17/19 11:17 Prinivil PO Not Given DAILY JULI Methylprednisolone Sodium Succinate 40 mg 01/18/19 10:00 01/18/19 10:01 Solu-Medrol - IVPUSH 40 mg BID JULI Administration Polyethylene Glycol 17 gm 01/17/19 10:00 01/18/19 10:02 Miralax (For Daily Use) - PO 17 gm DAILY JULI Administration Senna 2 tab 01/17/19 22:00 01/17/19 21:24 Senna - PO 2 tab HS JULI Administration [id number] CT/CHEST CTA - 01/17/19 HISTORY PROVIDED: Rule out PE. TECHNIQUE: Sequential axial images were obtained from the thoracic inlet through the domes of the diaphragm following the administration of intravenous contrast material. CTA pulmonary embolism protocol was utilized, including coronal and oblique coronal MIP images. The study is somewhat limited due to the patient's poor cooperation. There is adequate opacification of the central pulmonary vasculature with no filling defects suspicious for pulmonary embolism. The lung [place] are free of pulmonary masses, areas of acute consolidation or pleural effusions. There are areas of groundglass opacification throughout both lungs. These changes may be chronic in nature. The possibility of a mild degree of acute congestion cannot be excluded. No mediastinal masses, fluid collections or lymphadenopathy are identified. The heart is enlarged. Limited evaluation of the upper abdomen demonstrates no acute pathology. IMPRESSION: Limited study with with no evidence of pulmonary embolism or acute pathology within the chest. Please see above discussion. ECHO Interpretation Summary The study was technically difficult with many images being suboptimal in quality. The left ventricular size, thickness and function are normal The right ventricle is normal in size and function. There is trace tricuspid regurgitation. ASSESSMENT/PLAN: 78 y.o. pashto-speaking F w/ PMHx. of HTN, HLD, Hypothyroidism and Childhood allergic asthma p/w progressively worsening SOB and dry cough x4d. Physical exam significant for wheezing, morbid obesity,and lower extremity swelling?. Labs/Imaging significant for congestive changes on Xray, Negative PE on CTA, afebrile and no WBC elevation. #Acute Hypoxic Respiratory Failure 2/2 mild intermittent asthma exacerbation - still deasturating to 80s on RA but is 97% on 3L NC. low suspicion for volume overload based on normal BNP and no crackles on lung exam and on CT chest -Duplex neg for DVT -CTA Negative for PE, shows chronic? airway disease(non-specific ground glass opacities) -Peak flow today 250 -c/w medrol 40mg BID dosing, decrease to qd for yomi and switch to PO on dc -c/w azithromycin 500mg day 2 of 3 to decrease inflammation -bronchodilators -echo: limited study but appears nl as noted above -hold lasix IV at this time -will hold acei as this can also potentiate cough. although been on stable dose for some time. -Flu negative -pre/post prior to dc -will need PFT as outpatient -will add symbicort #CHF? - per pt, CARDENAS, increased lower extremity swelling, 3 pillow orthopnea, malaise, and Pt.'s medication history suggest that Pt may have some component of heart failure. not in exacerbation; normal BNP and no crackles on lung exam -EKG: NSR, QTc-414, TWI in V1, P-wave inversion in V1-V3 -BNP: 76.2 -Trop. Negative x 1 -echo: limited study but appears nl as noted above -s/p 60mg IV Lasix in ED -hold IV lasix as does not appear to be in exacerbaion -C/w home dose Coreg 12.5mg BID, holding Lisinopril 40mg in consideration of cough. -Strict Is and Os, Daily Weights #Constipation - chronic. per pt has BMs once a week at baseline c/w Miralax, Senna and Docusate #Hypothyroidism TSH WNL c/w Levothyroxine #ELVA/OHS BMI of 46 3 pillow orthopnea and malaise may be partially attributable to ELVA/OHS would recommend sleep study on discharge and follow up with Pulmonology outpatient #Morbid Obesity - BMI 46 [employer] Pt. on life style modifications with realistic expectations; Salt, processed sugar and saturated fat restriction Daily exercise- 20-30min of walking #HTN - controlled. will hold ACEI in consideration of cough. c/w Coreg #HLD c/w Atorvastatin #FEN no IVF, encourage PO intake monitor electrolytes and replete as needed Na restricted diet #DVT Ppx. Lovenox 60mg qd for BMI>40 use increase of standard dose by ~30% Dispo m/s anticipate discharge in next 24-48hr Visit type - Emergency Visit Emergency Visit: Yes ED Registration Date: 01/16/19 Care time: The patient presented to the Emergency Department on the above date and was hospitalized for further evaluation of their emergent condition. - New Patient This patient is new to me today: Yes Date on this admission: 01/18/19 - Critical Care Critical Care patient: No
--- NOTE | 2019-01-18 11:01 | PN ---
Teaching Attending Note Name of Resident: Edmar Ontiveros ATTENDING PHYSICIAN STATEMENT I saw and evaluated the patient. I reviewed the resident's note and discussed the case with the resident. I agree with the resident's findings and plan as documented. SUBJECTIVE:c/o non productive cough. unable to ambulate far due to dyspnea. denies Cp, SOB, fever, chills, N/V/C/D OBJECTIVE: Last Vital Signs Temp Pulse Resp BP Pulse Ox 98.3 F 60 18 143/54 L 94 L 01/18/19 09:32 01/18/19 09:32 01/18/19 09:32 01/18/19 09:32 01/17/19 21:00 General NAD CV S1 S2 RRR no murmur/rub/gallop Lungs scattered wheezing Abdomen soft NT/ND obese extremities non pitting edema ASSESSMENT AND PLAN: 78yo F wtih pMH HTN, dyslipidemia, hypothyroid presented to the ER with progressively worsening SOB and dry cough 1. Acute hypoxic respiratory failure- due to mild intermittent asthma exacerbation. peak flow 250. desaturated off supplemental oxygen to 80's earlier today. will cont medrol current dosing, azithro day2. add symbicort. nebs prn. may require supplemental oxygen on discharge. will obtain pre and post on discharge. cont to hold acei. echo results noted. will need PFT as outpatient. 2. HTN- controlled. monitor as ACEI being held. will need to titrate to optimize control 3. Hypothyroid- TSH WNL. cont LT4 4. DVT ppx- lovenox 5. anticipate discharge in next 24-48H
[2019-01-18] MEDS: BUDESONIDE/FORMETEROL FUMARATE 80/4.5 mcg INHALER IH SCH ×2 (14:54→22:02)
[2019-01-18] MEDS: SENNOSIDES 8.6MG TABLET (FP) PO SCH (22:01)
[2019-01-18] MEDS: ATORVASTATIN CA 40 MG TABLET (FP) PO SCH (22:01)
[2019-01-19 03:44] VITALS: TEMP 98
[2019-01-19] MEDS: LEVOTHYROXINE 112 MCG, LEVOTHYROXINE 25 MCG PO SCH (06:00)
[2019-01-19] MEDS ORDERED: methylPREDNISolone NA SUCC 40 MG/1 ML VIAL IVPUSH SCH (10:00)
[2019-01-19] MEDS ORDERED: PT OWN MED DRAWER 7, Y5N ONE (10:32)
[2019-01-19] MEDS: FUROSEMIDE 40 MG TABLET (FP) PO SCH (10:36)
[2019-01-19] MEDS: DOCUSATE SODIUM 100 MG CAPSULE (FP) PO SCH (10:36)
[2019-01-19] MEDS: CARVEDILOL 12.5 MG TABLET (FP) PO SCH (10:36)
[2019-01-19] MEDS: AZITHROMYCIN 250 MG TABLET PO SCH (10:36)
[2019-01-19] MEDS: ENOXAPARIN NA (PORCINE) 60 MG/0.6 ML DISP.SYRIN SQ SCH (10:36)
[2019-01-19] MEDS: ASPIRIN 81 MG CHEWABLE TABLETS PO SCH (10:36)
[2019-01-19] MEDS: BUDESONIDE/FORMETEROL FUMARATE 80/4.5 mcg INHALER IH SCH (10:37)
[2019-01-19] MEDS: POLYETHYLENE GLYCOL 3350 119 GM BTL PO SCH (10:37)
[2019-01-19 10:43] VITALS: BP 147/76; PULSE 63
[2019-01-19] MEDS ORDERED: LISINOPRIL 20 MG TABLET (FP) PO ONE (10:44)
--- NOTE | 2019-01-19 10:56 | DS ---
Physical Exam: SUBJECTIVE: Patient seen and examined. cough has resolved. breathing improved. denies CP, SOB, fever, chills, N/V/C/D OBJECTIVE: Vital Signs Period Temp Pulse Resp BP Sys/Mann Pulse Ox Last 24 Hr 98 F-98.1 F 61-84 18-20 147-192/67-90 93-96 PHYSICAL EXAM GENERAL: The patient is awake, alert, and fully oriented, in no acute distress. HEAD: Normal with no signs of trauma. EYES: PERRL, extraocular movements intact, sclera anicteric, conjunctiva clear. ENT: Ears normal, nares patent, oropharynx clear without exudates, moist mucous membranes. NECK: Trachea midline, full range of motion, supple. LUNGS: Breath sounds equal, clear to auscultation bilaterally, no wheezes, no crackles, no accessory muscle use. HEART: Regular rate and rhythm, S1, S2 without murmur, rub or gallop. ABDOMEN: Soft, nontender, nondistended, normoactive bowel sounds, no guarding, no rebound, no hepatosplenomegaly, no masses. obese EXTREMITIES: 2+ pulses, warm, well-perfused, no edema. NEUROLOGICAL: Cranial nerves II through XII grossly intact. Normal speech, gait not observed. PSYCH: Normal mood, normal affect. SKIN: Warm, dry, normal turgor, no rashes or lesions noted. LABS HOSPITAL COURSE: Date of Admission:01/16/19 Date of Discharge: 01/19/19 admitting diagnosis: ACute hypoxic respiratory failure, Acute asthma exacerbation Pre hospital course 78 y.o. yakut-speaking F presenting with cough and shortness of breath since Monday. Pt. states that she has been having a dry cough, malaise, and decreased appetite associated with subjective fever. She endorses that the cough has been keeping her up all night throughout this time. Pt. states that her neighbor whom she visits everyday was admitted yesterday for the flu. Pt. states that 2 years ago she felt very similar to the way she feels now but did not go to the hospital and her symptoms resolved in 2 weeks. Pt. states that she was referred by her PCP to see a [facility] and has an appointment on 01/29 for an echo and cardiac workup for suspected CHF. Pt. states that her legs are swollen and has been worsening progressively for months. Pt. states that she "can walk fine on a flat surface but becomes short of breath very quickly on hills and stairs." Pt. endorses 3 pillow orthopnea. Pt. states that her last BM was on Monday, but that she can sometimes go for "weeks" without having a BM. Pt. endorses a burning sensation in the right avitia. Pt. denies acute vision changes, acute bowel changes, acute urinary changes, blood in the urine or stool, chest pain, nausea or vomiting at this time. At this time Pt. endorses some improvement with respirations. Subsequent hospital course Admitted to medicine. started on medrol and azithromycin, supplemental oxygen. echo done to r/o CHF. steroids titrated down. pt was assessed and did not qualify for home o2. was d/c home on short steroid taper and inhalers. Minutes to complete discharge: 40 Discharge Summary Reason For Visit: SHORTNESS OF BREATH/HYPOTHROIDISM/HYPERTENSION Current Active Problems Acute asthma exacerbation (Acute) Acute respiratory failure with hypoxia (Acute) Hypertension (Acute) Hypothyroidism (Acute) Shortness of breath (Acute) Condition: Improved - Instructions Diet, Activity, Other Instructions: you came in because you were short of breath due to an asthma attack. we gave you steroids and albuterol nebulizer which helped your symptoms We will prescribe you inhalers to help control your asthma. Please take symbicort 2 puffs twice a day. Please take albuterol 2 puffs every 4-6 hours as needed if you are wheezing coughing and feeling shortness of breath. Please continue to take steroid prednisone Please resume your home meds Please follow up with your primary care physician within 1 week Please follow up with your [facility] [facility] within 1 week Please follow up with your pumlonologist or with lumber marker Dr Castrejon within 1 week If you experience any more shortness of breath or any fevers, chills, chest pain, nausea, vomit, increased leg swelling, unexplained weight gain of 2 pounds in 1 day, please call 911 or go to the ER Prednisone taper 10mg tablets take 4 tablets starting tomorrow 01/20 and 01/21 take 3 tablets on 01/22-01/23 take 2 tablets on 01/24-01/25 take 1 tablet on 01/26-01/27 Referrals: Gregorio Castrejon MD [Staff Physician] - 1 Week Disposition: HOME - Home Medications Comprehensive Discharge Medication List: Ambulatory Orders Aspirin 81 mg PO DAILY 01/16/19 Atorvastatin Ca [Lipitor] 40 mg PO HS 01/16/19 Carvedilol [Coreg] 12.5 mg PO BID 01/16/19 Furosemide [Lasix] 40 mg PO DAILY 01/16/19 Levothyroxine [Synthroid -] 137 mcg PO DAILY 01/16/19 Lisinopril [Prinivil -] 40 mg PO DAILY 01/16/19 Meloxicam 15 mg PO DAILY 01/16/19 Albuterol Sulfate Inhaler - [Ventolin HFA Inhaler -] 1 - 2 inh PO Q4H PRN #1 inhaler 01/19/19 Budesonide/Formeterol Fumarate [SYMBICORT 80/4.5mcg -] 1 inh PO BID #1 cannister 01/19/19 predniSONE [Deltasone -] 40 mg PO DAILY #20 tablet 01/19/19 This patient is new to me today: No Emergency Visit: Yes ED Registration Date: 01/16/19 Care time: The patient presented to the Emergency Department on the above date and was hospitalized for further evaluation of their emergent condition. Critical Care patient: No - Discharge Referral Referred to [facility] No
== END 2019-01-19 13:56 | disposition home or self-care (01) | DRG 202 ==
LOC: JER 20:34 → JERBED 22:53 → J5S 01-17 02:24
PROVIDERS: ADMIT Internal Medicine; ATTEND Internal Medicine
DX: J45.21 Mild intermittent asthma with (acute) exacerbation (principal); J96.01 Acute respiratory failure with hypoxia; Z68.42 Body mass index [BMI] 45.0-49.9, adult; E46 Unspecified protein-calorie malnutrition; I10 Essential (primary) hypertension; E66.01 Morbid (severe) obesity due to excess calories; E03.9 Hypothyroidism, unspecified; E78.5 Hyperlipidemia, unspecified; K59.00 Constipation, unspecified; G47.33 Obstructive sleep apnea (adult) (pediatric)
CPT/HCPCS: 36415; 71045-TC-FY; 71275-TC; 80053; 83036; 83735; 83880; 84100; 84443; 84484; 85027; 87804; 93005; 93010; 93306-TC; 93970-TC; 94640; 94761; 99283-25

== ENCOUNTER 2021-10-19 08:48 | Inpatient (IN) | payer OTHER ==
[2021-10-19 09:08] VITALS: BMI 46.7
[2021-10-19] MEDS ORDERED: ACETAMINOPHEN 325 MG TABLET (FP) PO ONE (09:19)
[2021-10-19 10:26] LABS: BASO % 0.5 % (0-2.0); HEMOGLOBIN 8.7 GM/dL (10.7-15.3); LYMPH % 13.7 % (8-40); MCH 32.2 pg (25.7-33.7); MCHC 33.4 g/dl (32.0-36.0); MEAN CELL VOLUME 96.4 fl (80-96); MEAN PLT VOLUME 8.2 fl (7.5-11.1); MONO % 10.4 % (3.8-10.2); NEUT % 74.4 % (42.8-82.8); PLATELET COUNT 281 10^3/uL (134-434); RDW 15.8 % (11.6-15.6); WHITE BLOOD COUNT 8.8 K/mm3 (4.0-10.0)
[2021-10-19 10:33] LABS: INR 1.34 (0.83-1.09)
[2021-10-19 10:36] LABS: ACTIVATED PTT 32.4 SECONDS (25.2-36.5)
[2021-10-19 10:46] LABS: CHLORIDE 101 mmol/L (98-107); SODIUM 139 mmol/L (136-145)
[2021-10-19 10:49] LABS: CALCIUM 8.7 mg/dL (8.5-10.1)
[2021-10-19 10:50] LABS: ALBUMIN 3.4 g/dl (3.4-5.0); ANION GAP 6 MMOL/L (8-16); BLOOD UREA NITROGEN 16.6 mg/dL (7-18); CO2 32 mmol/L (21-32); GLUCOSE,RANDOM 121 mg/dL (74-106)
[2021-10-19 10:53] LABS: CREATININE 0.7 mg/dL (0.55-1.3); SGOT/AST 23 U/L (15-37); SGPT/ALT 14 U/L (13-61)
[2021-10-19 10:55] LABS: TOT PROT 6.4 g/dl (6.4-8.2)
[2021-10-19 10:56] LABS: ALK PHOS 112 U/L (45-117)
[2021-10-19 15:40] LABS: EPI CELLS 6 /uL (0-25.1); HYALINE CASTS 5 /uL (0-3.1); PH,URINE 7.5 (5.0-8.0); URINE APPEARANCE CLOUDY; URINE BACTERIA 3004 /uL (0-1359); URINE BILIRUBIN NEGATIVE (NEGATIVE); URINE COLOR YELLOW; URINE GLUCOSE (UA) NEGATIVE (NEGATIVE); URINE KETONE NEGATIVE (NEGATIVE); URINE LEUK ESTERASE 2+ (NEGATIVE); URINE NITRITE NEGATIVE (NEGATIVE); URINE PROTEIN 1+ (NEGATIVE); URINE RBC 27 /uL (0-23.9); URINE WBC 465 /uL (0-25.8)
[2021-10-19] MEDS ORDERED: morphine CARPU-JECT 2 MG/1 ML DISP.SYRIN IVPUSH ONE (17:00)
[2021-10-19] MEDS: SODIUM CHLORIDE 1,000 ML IV SCH (17:45)
[2021-10-19] MEDS: LEVOTHYROXINE NA 150 MCG TABLET PO SCH (17:45)
[2021-10-19 18:33] LABS: HEMATOCRIT 26.7 % (32.4-45.2); HEMOGLOBIN 8.9 GM/dL (10.7-15.3); MCH 31.7 pg (25.7-33.7); MCHC 33.3 g/dl (32.0-36.0); MEAN CELL VOLUME 95.3 fl (80-96); RDW 16.3 % (11.6-15.6); WHITE BLOOD COUNT 14.1 K/mm3 (4.0-10.0)
[2021-10-19 19:04] LABS: ALBUMIN 3.5 g/dl (3.4-5.0); BLOOD UREA NITROGEN 15.2 mg/dL (7-18); CALCIUM 8.6 mg/dL (8.5-10.1)
[2021-10-19 19:08] LABS: CREATININE 0.6 mg/dL (0.55-1.3)
[2021-10-19 19:09] LABS: BILIRUBIN,TOTAL 1.1 mg/dL (0.2-1); TOT PROT 6.4 g/dl (6.4-8.2)
[2021-10-19] MEDS ORDERED: DOCUSATE SODIUM 100 MG CAPSULE (FP) PO PRN (19:56)
[2021-10-19] MEDS: ACETAMINOPHEN 325 MG TABLET (FP) PO PRN (21:14)
[2021-10-19] MEDS ORDERED: ACETAMINOPHEN 325 MG TABLET (FP) ONE (21:16)
[2021-10-19 21:51] LABS: ANISOCYTOSIS 2+; MACROCYTOSIS 1+; PLATELET ESTIMATE NORMAL
[2021-10-19 21:52] LABS: MEAN PLT VOLUME 9.1 fl (7.5-11.1); PLATELET COUNT 256 10^3/uL (134-434)
[2021-10-20] MEDS ORDERED: ATORVASTATIN CA 40 MG TABLET (FP) ONE (01:46)
[2021-10-20] MEDS ORDERED: CARVEDILOL 12.5 MG TABLET (FP) ONE ×2 (01:46→09:22)
[2021-10-20] MEDS ORDERED: ASCORBIC ACID 500 MG TABLET (FP) ONE ×2 (01:46→09:21)
[2021-10-20] MEDS ORDERED: FERROUS SO4 325 MG TABLET (FP) ONE ×2 (01:47→09:22)
[2021-10-20] MEDS ORDERED: CEFTRIAXONE 1 GM/50 ML BAG ONE ×2 (01:47→09:23)
[2021-10-20] MEDS: ATORVASTATIN CA 40 MG TABLET (FP) PO SCH ×2 (01:49→21:54)
[2021-10-20] MEDS: FERROUS SO4 325 MG TABLET (FP) PO SCH ×3 (01:49→21:54)
[2021-10-20] MEDS: ASCORBIC ACID 250 MG TABLET (FP) PO SCH ×3 (01:49→22:30)
[2021-10-20] MEDS: CEFTRIAXONE 1 GM in DEXTROSE 5%-WATER - 50 ML IVPB SCH ×2 (01:49→09:39)
[2021-10-20] MEDS: CARVEDILOL 25 MG TABLET (FP) PO SCH ×3 (01:49→21:54)
[2021-10-20 07:10] LABS: BASO % 0.7 % (0-2.0); EOS % 1.2 % (0-4.5); HEMATOCRIT 24.9 % (32.4-45.2); HEMOGLOBIN 8.3 GM/dL (10.7-15.3); LYMPH % 12.3 % (8-40); MCH 32.1 pg (25.7-33.7); MCHC 33.5 g/dl (32.0-36.0); MEAN CELL VOLUME 95.8 fl (80-96); MEAN PLT VOLUME 8.1 fl (7.5-11.1); MONO % 11.4 % (3.8-10.2); NEUT % 74.4 % (42.8-82.8); PLATELET COUNT 238 10^3/uL (134-434); WHITE BLOOD COUNT 7.8 K/mm3 (4.0-10.0)
[2021-10-20 07:16] LABS: INR 1.35 (0.83-1.09); PROTHROMBIN TIME (PATIENT) 15.2 SEC (9.7-13.0)
[2021-10-20 07:18] LABS: ACTIVATED PTT 31.5 SECONDS (25.2-36.5)
[2021-10-20] MEDS ORDERED: LEVOTHYROXINE NA 25 MCG TABLET (FP) ONE (07:30)
[2021-10-20] MEDS: LEVOTHYROXINE NA 150 MCG TABLET PO SCH (07:36)
[2021-10-20 07:37] LABS: CALCIUM 7.9 mg/dL (8.5-10.1)
[2021-10-20 07:38] LABS: ALBUMIN 2.8 g/dl (3.4-5.0); BLOOD UREA NITROGEN 16.6 mg/dL (7-18); MAGNESIUM 1.9 mg/dL (1.8-2.4)
[2021-10-20 07:40] LABS: CREATININE 0.7 mg/dL (0.55-1.3)
[2021-10-20 07:41] LABS: PHOSPHOROUS 3.5 mg/dL (2.5-4.9)
[2021-10-20 07:42] LABS: TOT PROT 5.9 g/dl (6.4-8.2)
[2021-10-20] MEDS ORDERED: VALSARTAN 80 MG TABLET ONE (09:22)
[2021-10-20] MEDS ORDERED: HYDROCHLOROTHIAZIDE 25 MG TABLET (FP) ONE (09:22)
[2021-10-20] MEDS ORDERED: PANTOPRAZOLE SODIUM 40 MG VIAL ONE (09:23)
[2021-10-20] MEDS: VALSARTAN 160 MG TABLET PO SCH (09:39)
[2021-10-20] MEDS: HYDROCHLOROTHIAZIDE 12.5 MG CAPSULE (FP) PO SCH (09:39)
[2021-10-20] MEDS: PANTOPRAZOLE SODIUM 40 MG VIAL IVPUSH SCH (09:39)
[2021-10-20] MEDS ORDERED: PATIENT'S OWN MEDICATION (NON-FORMULARY) (Valsartan/Hydrochlorothiazide [Valsartan-Hctz 32 PO SCH (10:00)
[2021-10-20] MEDS: SODIUM CHLORIDE 1,000 ML IV SCH (13:00)
[2021-10-20 16:06] LABS: HEMATOCRIT 24.2 % (32.4-45.2); HEMOGLOBIN 7.9 GM/dL (10.7-15.3); MCH 31.4 pg (25.7-33.7); MCHC 32.7 g/dl (32.0-36.0); MEAN PLT VOLUME 7.8 fl (7.5-11.1); PLATELET COUNT 231 10^3/uL (134-434); RBC 2.52 M/mm3 (3.60-5.2); RDW 16.2 % (11.6-15.6); WHITE BLOOD COUNT 6.7 K/mm3 (4.0-10.0)
[2021-10-20 16:17] LABS: INR 1.29 (0.83-1.09); PROTHROMBIN TIME (PATIENT) 15.1 SEC (9.7-13.0)
[2021-10-20 16:19] LABS: ACTIVATED PTT 32.2 SECONDS (25.2-36.5)
[2021-10-20 16:27] LABS: ALBUMIN 2.9 g/dl (3.4-5.0); BLOOD UREA NITROGEN 15.5 mg/dL (7-18)
[2021-10-20 16:31] LABS: CREATININE 0.5 mg/dL (0.55-1.3)
[2021-10-20 16:32] LABS: BILIRUBIN,TOTAL 0.8 mg/dL (0.2-1); TOT PROT 5.5 g/dl (6.4-8.2)
[2021-10-20] MEDS: MUPIROCIN 2% TOPICAL OINTMENT FOR DECOLONIZATION NS SCH (21:54)
[2021-10-20] MEDS ORDERED: PT OWN MED DRAWER 7, Y5N ONE (21:56)
[2021-10-20] MEDS ORDERED: CHLORHEXIDINE GLUCONATE 4% CLEANSER FOR DECOLONIZATION TP SCH (22:00)
[2021-10-21] MEDS: LEVOTHYROXINE NA 150 MCG TABLET PO SCH (06:27)
[2021-10-21 07:27] LABS: BASO % 0.6 % (0-2.0); EOS % 2.2 % (0-4.5); HEMATOCRIT 25.5 % (32.4-45.2); HEMOGLOBIN 8.3 GM/dL (10.7-15.3); LYMPH % 19.6 % (8-40); MCH 31.7 pg (25.7-33.7); MCHC 32.5 g/dl (32.0-36.0); MEAN CELL VOLUME 97.4 fl (80-96); MEAN PLT VOLUME 8.3 fl (7.5-11.1); MONO % 10.1 % (3.8-10.2); NEUT % 67.5 % (42.8-82.8); PLATELET COUNT 240 10^3/uL (134-434); RBC 2.62 M/mm3 (3.60-5.2); WHITE BLOOD COUNT 6.4 K/mm3 (4.0-10.0)
[2021-10-21 07:30] LABS: INR 1.21 (0.83-1.09); PROTHROMBIN TIME (PATIENT) 14.2 SEC (9.7-13.0)
[2021-10-21 07:33] LABS: ACTIVATED PTT 28.5 SECONDS (25.2-36.5)
[2021-10-21 07:46] LABS: ALBUMIN 2.8 g/dl (3.4-5.0); CALCIUM 8.2 mg/dL (8.5-10.1)
[2021-10-21 07:47] LABS: BLOOD UREA NITROGEN 15.6 mg/dL (7-18)
[2021-10-21 07:49] LABS: CREATININE 0.6 mg/dL (0.55-1.3)
[2021-10-21 07:50] LABS: PHOSPHOROUS 3.7 mg/dL (2.5-4.9)
[2021-10-21 07:51] LABS: BILIRUBIN,TOTAL 0.7 mg/dL (0.2-1); TOT PROT 5.7 g/dl (6.4-8.2)
[2021-10-21] MEDS ORDERED: PT OWN MED DRAWER 7, Y5N ONE ×2 (09:02→10:05)
[2021-10-21] MEDS ORDERED: DEXTROSE 5%-WATER - 50 ML IVPB ONE (09:03)
[2021-10-21] MEDS ORDERED: cefTRIAXone SODIUM 1 GM VIAL ONE (09:03)
[2021-10-21] MEDS: PANTOPRAZOLE SODIUM 40 MG VIAL IVPUSH SCH (09:10)
[2021-10-21] MEDS: FERROUS SO4 325 MG TABLET (FP) PO SCH ×2 (09:13→22:02)
[2021-10-21] MEDS: CARVEDILOL 25 MG TABLET (FP) PO SCH ×2 (09:13→22:02)
[2021-10-21] MEDS: MUPIROCIN 2% TOPICAL OINTMENT FOR DECOLONIZATION NS SCH (09:13)
[2021-10-21] MEDS: ASCORBIC ACID 250 MG TABLET (FP) PO SCH ×2 (09:13→22:02)
[2021-10-21] MEDS: HYDROCHLOROTHIAZIDE 12.5 MG CAPSULE (FP) PO SCH (09:14)
[2021-10-21] MEDS: CEFTRIAXONE 1 GM in DEXTROSE 5%-WATER - 50 ML IVPB SCH (09:14)
[2021-10-21] MEDS: VALSARTAN 160 MG TABLET PO SCH (09:14)
[2021-10-21] MEDS: SODIUM CHLORIDE 1,000 ML IV SCH (10:00)
[2021-10-21] MEDS: ACETAMINOPHEN 325 MG TABLET (FP) PO PRN (18:43)
[2021-10-21] MEDS ORDERED: ACETAMINOPHEN 325 MG TABLET (FP) PO PRN (20:56)
[2021-10-21] MEDS ORDERED: SODIUM CHLORIDE 1,000 ML IV SCH (20:56)
[2021-10-21] MEDS ORDERED: DOCUSATE SODIUM 100 MG CAPSULE (FP) PO PRN (20:56)
[2021-10-21] MEDS: ATORVASTATIN CA 40 MG TABLET (FP) PO SCH (22:02)
[2021-10-22] MEDS: LEVOTHYROXINE NA 150 MCG TABLET PO SCH (06:14)
[2021-10-22] MEDS ORDERED: cefTRIAXone SODIUM 1 GM VIAL ONE (08:58)
[2021-10-22] MEDS ORDERED: DEXTROSE 5%-WATER - 50 ML IVPB ONE (08:59)
[2021-10-22] MEDS: CARVEDILOL 25 MG TABLET (FP) PO SCH ×2 (09:13→21:00)
[2021-10-22] MEDS: ASCORBIC ACID 250 MG TABLET (FP) PO SCH ×2 (09:13→21:00)
[2021-10-22] MEDS: FERROUS SO4 325 MG TABLET (FP) PO SCH ×2 (09:13→21:00)
[2021-10-22] MEDS: PANTOPRAZOLE SODIUM 40 MG VIAL IVPUSH SCH (09:14)
[2021-10-22] MEDS: CEFTRIAXONE 1 GM in DEXTROSE 5%-WATER - 50 ML IVPB SCH (09:15)
[2021-10-22 09:52] LABS: BASO % 0.3 % (0-2.0); EOS % 1.1 % (0-4.5); HEMATOCRIT 26.1 % (32.4-45.2); HEMOGLOBIN 8.7 GM/dL (10.7-15.3); LYMPH % 17.4 % (8-40); MCH 32.2 pg (25.7-33.7); MCHC 33.3 g/dl (32.0-36.0); MEAN CELL VOLUME 96.9 fl (80-96); MEAN PLT VOLUME 7.6 fl (7.5-11.1); MONO % 9.7 % (3.8-10.2); NEUT % 71.5 % (42.8-82.8); PLATELET COUNT 253 10^3/uL (134-434); RBC 2.69 M/mm3 (3.60-5.2); RDW 16.3 % (11.6-15.6); WHITE BLOOD COUNT 6.3 K/mm3 (4.0-10.0)
[2021-10-22] MEDS ORDERED: VALSARTAN 160 MG TABLET PO SCH ×2 (10:00→16:22)
[2021-10-22] MEDS ORDERED: HYDROCHLOROTHIAZIDE 12.5 MG CAPSULE (FP) PO SCH (10:00)
[2021-10-22 10:22] LABS: CALCIUM 8.6 mg/dL (8.5-10.1)
[2021-10-22 10:23] LABS: ALBUMIN 3.2 g/dl (3.4-5.0); BLOOD UREA NITROGEN 17.5 mg/dL (7-18); MAGNESIUM 2.1 mg/dL (1.8-2.4)
[2021-10-22 10:25] LABS: PHOSPHOROUS 2.7 mg/dL (2.5-4.9)
[2021-10-22 10:26] LABS: CREATININE 0.8 mg/dL (0.55-1.3)
[2021-10-22 10:27] LABS: TOT PROT 6.2 g/dl (6.4-8.2)
[2021-10-22] MEDS ORDERED: BISACODYL 5 MG TABLET.DR (FP) PO PRN (15:12)
[2021-10-22] MEDS ORDERED: MAGNESIUM HYDROX 2400MG/30ML ORAL SUSPENSION 30 ML CUP PO PRN (15:24)
[2021-10-22] MEDS: NYSTATIN 100,000 UNIT/GM TOPICAL CREAM 15 GM TUBE TP SCH ×2 (19:17→23:45)
[2021-10-22 19:37] LABS: EPI CELLS 28 /uL (0-25.1); HYALINE CASTS 5 /uL (0-3.1); URINE APPEARANCE CLEAR; URINE BACTERIA 41 /uL (0-1359); URINE BILIRUBIN NEGATIVE (NEGATIVE); URINE COLOR YELLOW; URINE GLUCOSE (UA) NEGATIVE (NEGATIVE); URINE KETONE NEGATIVE (NEGATIVE); URINE LEUK ESTERASE 2+ (NEGATIVE); URINE NITRITE NEGATIVE (NEGATIVE); URINE PROTEIN NEGATIVE (NEGATIVE); URINE RBC 18 /uL (0-23.9); URINE WBC 154 /uL (0-25.8)
[2021-10-22] MEDS: ATORVASTATIN CA 40 MG TABLET (FP) PO SCH (21:00)
[2021-10-23] MEDS: NYSTATIN 100,000 UNIT/GM TOPICAL CREAM 15 GM TUBE TP SCH ×4 (05:51→23:41)
[2021-10-23] MEDS: LEVOTHYROXINE NA 150 MCG TABLET PO SCH (06:34)
[2021-10-23] MEDS ORDERED: PT OWN MED DRAWER 7, Y5N ONE ×2 (09:21→21:06)
[2021-10-23] MEDS ORDERED: DEXTROSE 5%-WATER - 50 ML IVPB ONE (09:22)
[2021-10-23] MEDS ORDERED: cefTRIAXone SODIUM 1 GM VIAL ONE (09:22)
[2021-10-23] MEDS: CARVEDILOL 25 MG TABLET (FP) PO SCH ×2 (09:25→21:21)
[2021-10-23] MEDS: CEFTRIAXONE 1 GM in DEXTROSE 5%-WATER - 50 ML IVPB SCH (09:25)
[2021-10-23] MEDS: FERROUS SO4 325 MG TABLET (FP) PO SCH ×2 (09:25→21:21)
[2021-10-23] MEDS: PANTOPRAZOLE SODIUM 40 MG VIAL IVPUSH SCH (09:25)
[2021-10-23] MEDS: ASCORBIC ACID 250 MG TABLET (FP) PO SCH ×2 (09:26→21:21)
[2021-10-23 09:38] LABS: BASO % 0.8 % (0-2.0); EOS % 2.3 % (0-4.5); HEMATOCRIT 26.2 % (32.4-45.2); HEMOGLOBIN 8.5 GM/dL (10.7-15.3); LYMPH % 20.7 % (8-40); MCH 31.4 pg (25.7-33.7); MCHC 32.4 g/dl (32.0-36.0); MEAN CELL VOLUME 97.1 fl (80-96); MEAN PLT VOLUME 7.9 fl (7.5-11.1); MONO % 14.1 % (3.8-10.2); NEUT % 62.1 % (42.8-82.8); PLATELET COUNT 258 10^3/uL (134-434); RDW 15.9 % (11.6-15.6); WHITE BLOOD COUNT 5.2 K/mm3 (4.0-10.0)
[2021-10-23 09:56] LABS: ALBUMIN 3.2 g/dl (3.4-5.0); BLOOD UREA NITROGEN 14.5 mg/dL (7-18); CALCIUM 8.6 mg/dL (8.5-10.1); MAGNESIUM 2.5 mg/dL (1.8-2.4)
[2021-10-23 09:59] LABS: CREATININE 0.7 mg/dL (0.55-1.3); PHOSPHOROUS 3.5 mg/dL (2.5-4.9)
[2021-10-23 10:01] LABS: BILIRUBIN,TOTAL 0.6 mg/dL (0.2-1); TOT PROT 6.2 g/dl (6.4-8.2)
[2021-10-23] MEDS: ATORVASTATIN CA 40 MG TABLET (FP) PO SCH (21:21)
[2021-10-24] MEDS: LEVOTHYROXINE NA 150 MCG TABLET PO SCH (06:18)
[2021-10-24] MEDS: NYSTATIN 100,000 UNIT/GM TOPICAL CREAM 15 GM TUBE TP SCH ×3 (06:18→17:42)
[2021-10-24] MEDS ORDERED: cefTRIAXone SODIUM 1 GM VIAL ONE (08:53)
[2021-10-24] MEDS ORDERED: DEXTROSE 5%-WATER - 50 ML IVPB ONE (08:53)
[2021-10-24] MEDS ORDERED: PT OWN MED DRAWER 7, Y5N ONE ×2 (08:57→21:41)
[2021-10-24] MEDS: ASCORBIC ACID 250 MG TABLET (FP) PO SCH ×2 (09:00→22:00)
[2021-10-24] MEDS: CEFTRIAXONE 1 GM in DEXTROSE 5%-WATER - 50 ML IVPB SCH (09:00)
[2021-10-24] MEDS: PANTOPRAZOLE SODIUM 40 MG VIAL IVPUSH SCH (09:00)
[2021-10-24] MEDS: FERROUS SO4 325 MG TABLET (FP) PO SCH ×2 (09:01→22:00)
[2021-10-24] MEDS: CARVEDILOL 25 MG TABLET (FP) PO SCH ×2 (09:01→22:00)
[2021-10-24] MEDS: VALSARTAN 80 MG TABLET PO SCH (09:01)
[2021-10-24 09:34] LABS: BASO % 0.6 % (0-2.0); EOS % 3.5 % (0-4.5); HEMATOCRIT 25.3 % (32.4-45.2); HEMOGLOBIN 8.2 GM/dL (10.7-15.3); LYMPH % 24.2 % (8-40); MCH 31.6 pg (25.7-33.7); MCHC 32.3 g/dl (32.0-36.0); MEAN CELL VOLUME 97.9 fl (80-96); NEUT % 59.7 % (42.8-82.8); PLATELET COUNT 248 10^3/uL (134-434); RBC 2.59 M/mm3 (3.60-5.2); RDW 15.7 % (11.6-15.6); WHITE BLOOD COUNT 5.2 K/mm3 (4.0-10.0)
[2021-10-24 10:05] LABS: ALBUMIN 3.1 g/dl (3.4-5.0)
[2021-10-24 10:06] LABS: BILIRUBIN,TOTAL 0.5 mg/dL (0.2-1); CALCIUM 8.5 mg/dL (8.5-10.1)
[2021-10-24 10:07] LABS: BLOOD UREA NITROGEN 13.4 mg/dL (7-18); MAGNESIUM 2.5 mg/dL (1.8-2.4)
[2021-10-24 10:08] LABS: CREATININE 0.6 mg/dL (0.55-1.3); PHOSPHOROUS 2.9 mg/dL (2.5-4.9)
[2021-10-24] MEDS: ATORVASTATIN CA 40 MG TABLET (FP) PO SCH (22:00)
[2021-10-25] MEDS: NYSTATIN 100,000 UNIT/GM TOPICAL CREAM 15 GM TUBE TP SCH ×2 (00:05→06:06)
[2021-10-25] MEDS: LEVOTHYROXINE NA 150 MCG TABLET PO SCH (06:06)
[2021-10-25] MEDS ORDERED: cefTRIAXone SODIUM 1 GM VIAL ONE (09:17)
[2021-10-25] MEDS ORDERED: DEXTROSE 5%-WATER - 50 ML IVPB ONE (09:17)
[2021-10-25] MEDS: VALSARTAN 80 MG TABLET PO SCH (09:18)
[2021-10-25] MEDS: CARVEDILOL 25 MG TABLET (FP) PO SCH (09:19)
[2021-10-25] MEDS: CEFTRIAXONE 1 GM in DEXTROSE 5%-WATER - 50 ML IVPB SCH (09:19)
[2021-10-25] MEDS: PANTOPRAZOLE SODIUM 40 MG VIAL IVPUSH SCH (09:19)
[2021-10-25] MEDS: FERROUS SO4 325 MG TABLET (FP) PO SCH (09:19)
[2021-10-25] MEDS: ASCORBIC ACID 250 MG TABLET (FP) PO SCH (09:20)
[2021-10-25 12:57] LABS: BASO % 0.6 % (0-2.0); EOS % 2.9 % (0-4.5); HEMATOCRIT 24.4 % (32.4-45.2); HEMOGLOBIN 8.3 GM/dL (10.7-15.3); LYMPH % 17.4 % (8-40); MCH 32.7 pg (25.7-33.7); MCHC 34.1 g/dl (32.0-36.0); MEAN CELL VOLUME 95.9 fl (80-96); MEAN PLT VOLUME 7.7 fl (7.5-11.1); MONO % 11.9 % (3.8-10.2); NEUT % 67.2 % (42.8-82.8); PLATELET COUNT 235 10^3/uL (134-434); RBC 2.54 M/mm3 (3.60-5.2); RDW 15.5 % (11.6-15.6); WHITE BLOOD COUNT 4.9 K/mm3 (4.0-10.0)
[2021-10-25 13:11] LABS: CALCIUM 8.4 mg/dL (8.5-10.1)
[2021-10-25] MEDS ORDERED: NYSTATIN 100,000 UNIT/GM TOPICAL CREAM 15 GM TUBE TP SCH (13:11)
[2021-10-25 13:12] LABS: BLOOD UREA NITROGEN 13.8 mg/dL (7-18); MAGNESIUM 2.1 mg/dL (1.8-2.4)
[2021-10-25 13:15] LABS: CREATININE 0.5 mg/dL (0.55-1.3); PHOSPHOROUS 2.7 mg/dL (2.5-4.9)
[2021-10-25 13:17] LABS: BILIRUBIN,TOTAL 0.4 mg/dL (0.2-1); TOT PROT 5.9 g/dl (6.4-8.2)
[2021-10-25 14:46] VITALS: BP 111/52; PULSE 63; TEMP 98.9
[2021-10-25] MEDS ORDERED: PT OWN MED DRAWER 7, Y5N ONE (19:52)
== END 2021-10-25 21:17 | disposition home or self-care (01) | DRG 687 ==
LOC: JER 08:48 → JERBED 09:36 → JICU 10-20 11:43 → J6S 10-21 19:18
PROVIDERS: ADMIT Internal Medicine; ATTEND Internal Medicine
DX: D49.512 Neoplasm of unspecified behavior of left kidney (principal); S37.012A Minor contusion of left kidney, initial encounter; Z68.42 Body mass index [BMI] 45.0-49.9, adult; D62 Acute posthemorrhagic anemia; N39.0 Urinary tract infection, site not specified; X58.XXXA Exposure to other specified factors, initial encounter; Y93.9 Activity, unspecified; Y92.89 Other specified places as the place of occurrence of the external cause; Y99.9 Unspecified external cause status; E66.01 Morbid (severe) obesity due to excess calories; E03.9 Hypothyroidism, unspecified; I10 Essential (primary) hypertension; E78.5 Hyperlipidemia, unspecified; B35.3 Tinea pedis; R10.12 Left upper quadrant pain
CPT/HCPCS: 36415; 71045-TC-FY; 74177-TC; 80053; 81003; 82728; 83036; 83540; 83550; 83605; 83735; 83880; 84100; 84439; 84443; 84480; 84484; 85025; 85027; 85610; 85730; 86850; 86900; 86901; 87040; 87086; 93005; 93010; 93970-TC; 97116-GP; 97162-GP; 99285-25; C9803-CS; U0003; U0005

== ENCOUNTER 2024-09-20 22:51 | Observation (INO) | payer OTHER ==
[2024-09-21 01:56] LABS: BASO % 0.4 % (0-2.0); EOS % 1.3 % (0-4.5); HEMOGLOBIN 12.4 GM/dL (10.7-15.3); MCH 30.6 pg (25.7-33.7); MCHC 32.7 g/dl (32.0-36.0); MEAN CELL VOLUME 93.6 fl (80-96); MEAN PLT VOLUME 8.5 fl (7.5-11.1); MONO % 7.2 % (3.8-10.2); NEUT % 77.1 % (42.8-82.8); PLATELET COUNT 234 10^3/uL (134-434); RBC 4.06 M/mm3 (3.60-5.2); RDW 15.3 % (11.6-15.6); WHITE BLOOD COUNT 11.4 K/mm3 (4.0-10.0)
[2024-09-21 02:13] LABS: POTASSIUM 4.3 mmol/L (3.5-5.1)
[2024-09-21 02:18] LABS: ALBUMIN 3.6 g/dl (3.4-5.0); CALCIUM 9.4 mg/dL (8.5-10.1); CREATININE 0.9 mg/dL (0.55-1.3)
[2024-09-21 02:20] LABS: BILIRUBIN,TOTAL 0.4 mg/dL (0.2-1); TOT PROT 6.6 g/dl (6.4-8.2)
[2024-09-21 06:09] LABS: EPI CELLS 22 /uL (0-25.1); HYALINE CASTS 0 /uL (0-3.1); PH,URINE 7.5 (5.0-8.0); URINE APPEARANCE CLEAR; URINE BACTERIA >9,000 /uL (0-1359); URINE BILIRUBIN NEGATIVE (NEGATIVE); URINE COLOR YELLOW; URINE GLUCOSE (UA) NEGATIVE (NEGATIVE); URINE KETONE NEGATIVE (NEGATIVE); URINE LEUK ESTERASE 1+ (NEGATIVE); URINE NITRITE POSITIVE (NEGATIVE); URINE PROTEIN NEGATIVE (NEGATIVE); URINE RBC 11 /uL (0-23.9); URINE WBC 91 /uL (0-25.8)
[2024-09-21 06:37] LABS: HEMATOCRIT 37.7 % (32.4-45.2); HEMOGLOBIN 12.3 GM/dL (10.7-15.3); MCH 30.9 pg (25.7-33.7); MCHC 32.7 g/dl (32.0-36.0); MEAN CELL VOLUME 94.6 fl (80-96); MEAN PLT VOLUME 8.4 fl (7.5-11.1); PLATELET COUNT 239 10^3/uL (134-434); RBC 3.99 M/mm3 (3.60-5.2); RDW 15.2 % (11.6-15.6)
[2024-09-21] MEDS: SODIUM CHLORIDE 500 ML IV STA (06:43)
[2024-09-21 06:54] LABS: POTASSIUM 3.9 mmol/L (3.5-5.1)
[2024-09-21 06:59] LABS: ALBUMIN 3.5 g/dl (3.4-5.0); CALCIUM 9.5 mg/dL (8.5-10.1); MAGNESIUM 1.7 mg/dL (1.8-2.4)
[2024-09-21 07:02] LABS: CREATININE 0.7 mg/dL (0.55-1.3)
[2024-09-21 07:03] LABS: PHOSPHOROUS 3.1 mg/dL (2.5-4.9)
[2024-09-21 07:04] LABS: BILIRUBIN,TOTAL 0.5 mg/dL (0.2-1); TOT PROT 6.5 g/dl (6.4-8.2)
[2024-09-21] MEDS: INSULIN ASPART SLIDING SCALE (NOVOLOG) 1 VIAL SQ SCH (07:30)
[2024-09-21] MEDS: LEVOTHYROXINE NA 75 MCG TABLET (FP) PO SCH (07:30)
[2024-09-21] MEDS ORDERED: LEVOTHYROXINE NA 75 MCG TABLET (FP) ONE (08:02)
[2024-09-21] MEDS ORDERED: CEFTRIAXONE 1 G/50 ML PREMIX 50 ML IVPB ONE (08:03)
[2024-09-21] MEDS: CEFTRIAXONE 1 G/50 ML PREMIX 50 ML IVPB SCH (08:18)
[2024-09-21] MEDS ORDERED: HYDROCHLOROTHIAZIDE 25 MG TABLET (FP) ONE (09:59)
[2024-09-21] MEDS ORDERED: LOSARTAN POTASSIUM 50 MG TABLET ONE (09:59)
[2024-09-21] MEDS ORDERED: CEFTRIAXONE 1 G/50 ML PREMIX 50 ML IVPB SCH (10:00)
[2024-09-21] MEDS ORDERED: CARVEDILOL 6.25 MG TABLET (FP) ONE (10:00)
[2024-09-21] MEDS: CARVEDILOL 12.5 MG TABLET (FP) PO SCH (10:20)
[2024-09-21] MEDS: LOSARTAN POTASSIUM 50 MG TABLET PO SCH (10:20)
[2024-09-21] MEDS: HYDROCHLOROTHIAZIDE 25 MG TABLET (FP) PO SCH (10:20)
[2024-09-21] MEDS ORDERED: MAGNESIUM 1GM/D5W - 1 GM/100 ML IVPB IVPB ONE (15:22)
[2024-09-21] MEDS: MAGNESIUM 1GM/D5W 100ML - 100 ML IVPB IVPB ONE (15:37)
[2024-09-21] MEDS ORDERED: TRIMETHOBENZAMIDE HCL 200MG/2ML INJ IM ONE ×2 (21:05→21:48)
[2024-09-21] MEDS: TRIMETHOBENZAMIDE HCL 200MG/2ML INJ IM ONE ×2 (21:18→22:23)
[2024-09-21] MEDS ORDERED: ATORVASTATIN CA 40 MG TABLET (FP) ONE (21:47)
[2024-09-21] MEDS ORDERED: CARVEDILOL 25 MG TABLET (FP) ONE (21:49)
[2024-09-21] MEDS: ATORVASTATIN CA 40 MG TABLET (FP) PO SCH (22:23)
[2024-09-22] MEDS ORDERED: LEVOTHYROXINE NA 75 MCG TABLET (FP) ONE (08:01)
[2024-09-22 08:37] LABS: POTASSIUM 4.2 mmol/L (3.5-5.1)
[2024-09-22 08:43] LABS: CALCIUM 9.3 mg/dL (8.5-10.1)
[2024-09-22 08:44] LABS: BLOOD UREA NITROGEN 19.6 mg/dL (7-18)
[2024-09-22 08:45] LABS: CREATININE 0.8 mg/dL (0.55-1.3)
[2024-09-22 08:53] LABS: BASO % 0.8 % (0-2.0); EOS % 1.8 % (0-4.5); HEMATOCRIT 37.7 % (32.4-45.2); LYMPH % 23.4 % (8-40); MCH 30.3 pg (25.7-33.7); MCHC 31.9 g/dl (32.0-36.0); MEAN PLT VOLUME 9.9 fl (7.5-11.1); MONO % 9.2 % (3.8-10.2); NEUT % 64.8 % (42.8-82.8); RBC 3.97 M/mm3 (3.60-5.2); RDW 15.6 % (11.6-15.6); WHITE BLOOD COUNT 9.4 K/mm3 (4.0-10.0)
[2024-09-22] MEDS ORDERED: LOSARTAN POTASSIUM 50 MG TABLET ONE (10:13)
[2024-09-22] MEDS ORDERED: HYDROCHLOROTHIAZIDE 25 MG TABLET (FP) ONE (10:13)
[2024-09-22] MEDS ORDERED: CARVEDILOL 6.25 MG TABLET (FP) ONE (10:14)
[2024-09-22] MEDS ORDERED: CEFTRIAXONE 1 G/50 ML PREMIX 50 ML IVPB ONE (10:14)
[2024-09-22 10:28] LABS: PLATELET COUNT 192 10^3/uL (134-434)
[2024-09-23 08:39] LABS: POTASSIUM 4.6 mmol/L (3.5-5.1)
[2024-09-23 08:42] LABS: BLOOD UREA NITROGEN 23.6 mg/dL (7-18); CALCIUM 9.4 mg/dL (8.5-10.1)
[2024-09-23 08:46] LABS: CREATININE 0.8 mg/dL (0.55-1.3)
[2024-09-23 11:08] LABS: ARTERIAL BLOOD GAS BASE EXCESS 2.6 mmol/L (-2-2); ARTERIAL BLOOD GAS PO2 98.3 mmHg (80-100); ARTERIAL BLOOD GAS pH 7.337 (7.350-7.450)
[2024-09-23 11:09] LABS: ALLENS TEST POSITIVE
[2024-09-24] MEDS: CEPHALEXIN MONOHYDRATE 500 MG CAPSULE (UD) PO SCH (10:00)
[2024-09-24 11:35] LABS: HEMATOCRIT 36.8 % (32.4-45.2); HEMOGLOBIN 12.4 GM/dL (10.7-15.3); MCH 31.3 pg (25.7-33.7); MCHC 33.6 g/dl (32.0-36.0); MEAN CELL VOLUME 93.2 fl (80-96); MEAN PLT VOLUME 8.4 fl (7.5-11.1); PLATELET COUNT 222 10^3/uL (134-434); RBC 3.95 M/mm3 (3.60-5.2); RDW 15.2 % (11.6-15.6); WHITE BLOOD COUNT 9.7 K/mm3 (4.0-10.0)
[2024-09-24 11:55] LABS: POTASSIUM 4.1 mmol/L (3.5-5.1)
[2024-09-24 12:04] LABS: BLOOD UREA NITROGEN 18.1 mg/dL (7-18); CALCIUM 9.5 mg/dL (8.5-10.1)
[2024-09-24 12:07] LABS: CREATININE 0.7 mg/dL (0.55-1.3)
[2024-09-25 08:37] LABS: HEMATOCRIT 36.5 % (32.4-45.2); HEMOGLOBIN 12.1 GM/dL (10.7-15.3); MCH 30.8 pg (25.7-33.7); MCHC 33.1 g/dl (32.0-36.0); MEAN CELL VOLUME 93.1 fl (80-96); MEAN PLT VOLUME 8.6 fl (7.5-11.1); PLATELET COUNT 221 10^3/uL (134-434); RBC 3.92 M/mm3 (3.60-5.2); RDW 15.2 % (11.6-15.6); WHITE BLOOD COUNT 10.2 K/mm3 (4.0-10.0)
[2024-09-25 08:41] LABS: POTASSIUM 3.7 mmol/L (3.5-5.1)
[2024-09-25 08:51] LABS: CALCIUM 9.4 mg/dL (8.5-10.1)
[2024-09-25 08:54] LABS: CREATININE 0.6 mg/dL (0.55-1.3)
[2024-09-25 15:39] VITALS: BMI 46.8
[2024-09-25 18:27] VITALS: TEMP 98.2
[2024-09-25 22:39] VITALS: BP 156/78; PULSE 67; RESP 18
== END 2024-09-25 22:15 | disposition short-term general hospital (02) ==
LOC: JER 22:51 → JERBED 09-21 05:05 → J4S 09-22 20:15
PROVIDERS: ADMIT Internal Medicine; ATTEND Internal Medicine
PROC: 3E033GC Introduction of Other Therapeutic Substance into Peripheral Vein, Percutaneous Approach (ICD-10-PCS; principal; 2024-09-21)
PROC: 3E0337Z Introduction of Electrolytic and Water Balance Substance into Peripheral Vein, Percutaneous Approach (ICD-10-PCS; 2024-09-21)
PROC: 3E023GC Introduction of Other Therapeutic Substance into Muscle, Percutaneous Approach (ICD-10-PCS; 2024-09-21)
DX: R55 Syncope and collapse (principal); R09.02 Hypoxemia; J96.22 Acute and chronic respiratory failure with hypercapnia; R06.02 Shortness of breath; B96.29 Other Escherichia coli [E. coli] as the cause of diseases classified elsewhere; I45.10 Unspecified right bundle-branch block; E87.29 Other acidosis; I45.5 Other specified heart block; I49.9 Cardiac arrhythmia, unspecified; I10 Essential (primary) hypertension; E78.5 Hyperlipidemia, unspecified; E66.2 Morbid (severe) obesity with alveolar hypoventilation; Z68.42 Body mass index [BMI] 45.0-49.9, adult
CPT/HCPCS: 36415; 36600; 70450-TC; 71045-TC-FY; 71250-TC; 80048; 80053; 81003; 82803; 82962; 83735; 84100; 84436; 84443; 84484; 85025; 85027; 87086; 87186; 93005; 93010; 93306-TC; 96361; 96365; 96372; 96375; 97116-GP; 97161-GP; 99285-25; G0378